=== PATIENT | male | born 1980 | race Caucasian/White ===

== ENCOUNTER 2017-08-05 09:36 | Emergency (ER) | payer OTHER, MEDICAID ==
[2017-08-05 09:49] VITALS: BP 130/84
[2017-08-05] MEDS ORDERED: IBUPROFEN 800 MG TABLET PO STA (10:44)
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
[2017-08-05] MEDS ORDERED: IBUPROFEN 800 MG TABLET PO ONE (10:55)
== END 2017-08-05 10:56 | disposition home or self-care (01) ==
LOC: ED 09:36
DX: M79.1 Myalgia (principal); S16.1XXA Strain of muscle, fascia and tendon at neck level, initial encounter; V46.5XXA Car driver injured in collision with other nonmotor vehicle in traffic accident, initial encounter; Y92.411 Interstate highway as the place of occurrence of the external cause
CPT/HCPCS: 99282; 99283; A9270

== ENCOUNTER 2017-08-15 16:49 | Outpatient (CLI) | payer OTHER, MEDICAID ==
--- NOTE | 2017-08-16 11:05 | XRAY Report ---
THREE-VIEW LUMBAR SPINE: 08/15/2017 HISTORY: Back pain. COMPARISON: Reformatted images from the CT scan 06/12/2015. FINDINGS: Minimal retrolisthesis L2 with respect to L3, L3 with respect to L4, and L4 with respect to L5. Minimal lumbar levoscoliosis. Vertebral bodies normal in height without fracture or destruction. There is degenerative disk space narrowing L4-5 and L3-4. Remaining disk spaces grossly well-maintained. Mild degenerative facet joint arthropathy most marked L4-5 and L5-S1. IMPRESSION: DEGENERATIVE CHANGE LUMBAR SPINE ABOVE. LUMBAR SPINAL STENOSIS MAY BE PRESENT BUT COULD BE BEST ASSESSED BY MRI. JOB #: [id number] EXT JOB #: [id number] KARTHIK
--- NOTE | 2017-08-16 11:10 | XRAY Report ---
THORACIC SPINE, THREE VIEWS: 08/15/2017 HISTORY: Back pain. COMPARISON: CXR 12/30/15 FINDINGS: Very slight upper thoracic dextroscoliosis. Vertebral bodies otherwise unremarkable in height and alignment. Mild scattered degenerative disk space narrowing. No bone destruction or fracture. Multiple surgical clips in the neck. IMPRESSION: MINOR DEGENERATIVE CHANGE THORACIC SPINE SIMILAR TO THE CHEST X- RAY OF 01/19/2016. NO SUPERIMPOSED ACUTE FINDINGS. JOB #: [id number] EXT JOB #: [id number] [facility]
--- NOTE | 2017-08-16 11:11 | XRAY Report ---
CERVICAL SPINE: 08/15/2017 HISTORY: Neck pain. COMPARISON: None. FINDINGS: The cervical vertebral bodies are normal in height and alignment. The disk spaces are wel l-maintained. The C1-2 articulation is anatomically aligned. No prevertebral soft tissue swelling. Multiple surgical clips in the neck. IMPRESSION: NEGATIVE THREE-VIEW CERVICAL SPINE. JOB #: [id number] EXT JOB #:[id number]
== END 2017-08-15 16:50 | disposition home or self-care (01) ==
LOC: DI 16:49
PROVIDERS: ATTEND Family Medicine
DX: S29.012A Strain of muscle and tendon of back wall of thorax, initial encounter (principal); S39.012A Strain of muscle, fascia and tendon of lower back, initial encounter; S16.1XXA Strain of muscle, fascia and tendon at neck level, initial encounter
CPT/HCPCS: 72040; 72070; 72100

== ENCOUNTER 2017-12-02 11:10 | Outpatient (CLI) | payer BC, MEDICAID, OTHER ==
[2017-12-02 20:05] LABS: BASOPHILS % (AUTO) 0.3 %; EOSINOPHILS # (AUTO) 0.1 10^3/uL (0.0-0.7); EOSINOPHILS % (AUTO) 1.3 %; LYMPHOCYTES # (AUTO) 1.2 10^3/uL (1.5-3.5); LYMPHOCYTES % (AUTO) 20.9 %; MEAN CORPUSCULAR HEMOGLOBIN 24.9 pg (27.0-31.0); MEAN CORPUSCULAR HGB CONC 30.7 g/dL (32.0-36.0); MEAN CORPUSCULAR VOLUME 81.1 fL (80.0-94.0); MEAN PLATELET VOLUME 10.3 fL (7.4-11.4); MONOCYTES # (AUTO) 0.4 10^3/uL (0.0-1.0); MONOCYTES % (AUTO) 6.5 %; NEUTROPHILS # (AUTO) 4.1 10^3/uL (1.5-6.6); PLT - PLATELET COUNT 234 10^3/uL (130-450); RED BLOOD COUNT 4.82 10^6/uL (4.70-6.10); RED CELL DISTRIBUTION WIDTH 16.5 % (12.0-15.0); WHITE BLOOD COUNT 5.8 x10^3/uL (4.8-10.8)
[2017-12-02 20:19] LABS: BUN - BLOOD UREA NITROGEN 17 mg/dL (6-20); CALCIUM 9.4 mg/dL (8.5-10.3); CARBON DIOXIDE - CO2 28 mmol/L (21-32); CHLORIDE 103 mmol/L (101-111); CREATININE 1.2 mg/dL (0.6-1.2); GFR - MDRD 68 (>89); GLUCOSE 99 mg/dL (70-100); SODIUM 139 mmol/L (135-145)
[2017-12-02 20:38] LABS: THYROID STIMULATING HORMONE 45.87 uIU/mL (0.34-5.60)
[2017-12-02 22:19] LABS: FREE T4 (FREE THYROXINE) 0.63 ng/dL (0.58-1.64)
== END 2017-12-02 11:11 | disposition home or self-care (01) ==
LOC: LAB.N 11:10
PROVIDERS: ATTEND Physician Assistant Medical
DX: F41.8 Other specified anxiety disorders (principal); G44.329 Chronic post-traumatic headache, not intractable; E03.9 Hypothyroidism, unspecified; G63 Polyneuropathy in diseases classified elsewhere
CPT/HCPCS: 36415; 80048; 84439; 84443; 85025

== ENCOUNTER 2018-02-01 20:13 | Outpatient (CLI) | payer MEDICAID | END 2018-02-01 20:14 | disposition home or self-care (01) | LOC: LAB.N 20:13 | PROVIDERS: ATTEND Physician Assistant Medical | DX: E03.9 Hypothyroidism, unspecified (principal) | CPT/HCPCS: 36415; 84443 ==

== ENCOUNTER 2018-10-07 10:03 | Emergency (ER) | payer MEDICAID ==
[2018-10-07] MEDS ORDERED: MELOXICAM 7.5 MG TABLET PO STA (12:19)
--- NOTE | 2018-10-07 12:22 | ED Physician Documentation ---
PD HPI BACK PAIN - Stated complaint Stated Complaint: CANT SLEEP/BILAT LEG NUMBNESS - Chief complaint Chief Complaint: Back Pain - History obtained from History obtained from: Patient - History of Present Illness Timing - onset: Chronic Pain level max: 5 Pain level now: 5 Location: Lower, Right, Left Quality: Pain, Similar to prior episodes Associated symptoms: Numbness (Bilateral legs, outer aspects.). No: Fever, Weakness, Incontinent of urine, Unable to urinate, Hematuria, Incontinent of stool Improves with: Rest Worsened by: Movement - Additional information Additional information: Patient is a 38-year-old male with chronic low back pain who received steroid injections 2 days ago at [facility]. States that he has had trouble sleeping since that time and is more uncomfortable since receiving the injections. Has not taken anything for pain. Is not having any fevers. No loss of bowel or bladder control. Does not use IV drugs. Review of Systems Constitutional: denies: Fever, Chills Respiratory: denies: Cough GI: denies: Abdominal Pain, Vomiting, Diarrhea Skin: denies: Rash Musculoskeletal: denies: Neck pain Neurologic: denies: Headache PD PAST MEDICAL HISTORY - Past Medical History Cardiovascular: None Respiratory: None Endocrine/Autoimmune: HyPERthyroidism, Other GI: None : None HEENT: None Musculoskeletal: Chronic back pain - Past Surgical History Past Surgical History: Yes Ortho: Other HEENT: Tonsil/Adenoidectomy - Present Medications Home Medications: Ambulatory Orders Medication Instructions Recorded Confirmed Calcium Carbonate [Calcium] 1,000 mg PO DAILY 02/16/14 10/09/16 Levothyroxine [Synthroid] 150 mcg PO QDAC 02/16/14 10/09/16 Magnesium 30 mg PO DAILY 02/16/14 10/09/16 Cyanocobalamin (Vitamin B-12) 1,000 mg PO DAILY 10/09/16 10/09/16 [B-12] Erythromycin Base [Erythromycin 1 gm LEFTEYE BID #1 oint...g. 10/09/16 Ophthalmic Ointment] Potassium Citrate [Urocit-K] 5 meq PO DAILY 10/09/16 10/09/16 Verapamil [Calan] 40 mg PO TID 10/09/16 10/09/16 oxyCODONE/ACET 5/325 [Percocet 5 1 - 2 each PO Q6H PRN #10 tablet 10/09/16 mg/325 mg] Cyclobenzaprine [Flexeril] 10 mg PO TID PRN #20 tablet 08/05/17 HYDROcod/ACETAM 5/325 [[place] 5/325] 1 - 2 ea PO Q6H PRN #20 tablet 08/05/17 Diclofenac Epolamine [Flector] 1 each TD Q12H PRN #10 adh..patch 10/07/18 Hydrocodone/Acetaminophen 1 - 2 each PO Q6H PRN #10 tablet 10/07/18 [Hydrocodon-Acetaminophen 5-325] Meloxicam [Mobic] 15 mg PO DAILY PRN #20 tablet 10/07/18 - Allergies Allergies/Adverse Reactions: Allergies Allergy/AdvReac Type Severity Reaction Status Date / Time No Known Drug Allergies Allergy Verified 10/07/18 10:15 - Social History Does the pt smoke?: No Smoking Status: Never smoker Does the pt drink ETOH?: Yes Does the pt have substance abuse?: No - Immunizations Immunizations are current?: Yes - POLST Patient has POLST: No PD ED PE NORMAL - Vitals Vital signs reviewed: Yes - General General: Alert and oriented X 3, No acute distress - HEENT HEENT: Moist mucous membranes - Neck Neck: Supple, no meningeal sign, No bony TTP - Cardiac Cardiac: RRR, Strong equal pulses - Respiratory Respiratory: No respiratory distress, Clear bilaterally - Abdomen Abdomen: Soft, Non tender, Non distended - Back Back: No spinal TTP (Injection site is without signs of infection. No swelling. No midline tenderness to palpation or percussion) - Derm Derm: Warm and dry - Extremities Extremities: Other (Normal bilateral lower extremity patellar and ankle jerk reflexes. Normal great toe extension bilaterally. no saddle anesthesia) - Neuro Neuro: Alert and oriented X 3 - Psych Psych: Normal mood, Normal affect Results - Vitals Vitals: Vital Signs - 24 hr 10/07/18 10:11 Temperature 36.0 C L Heart Rate 106 H Respiratory 16 Rate Blood Pressure 121/70 O2 Saturation 98 Oxygen O2 Source Room air PD MEDICAL DECISION MAKING - ED course Complexity details: considered differential (No cauda equina, no spinal epidural abscess, no fracture, no aortic dissection or evidence of aneursym rupture), d/w patient ED course: 38-year-old male with chronic low back pain, states worsening after receiving an steroid injection 2 days ago. No evidence of cauda equina, epidural abscess. No fevers. He has not taken anything for pain, will trial him on meloxicam and Flector patches. Will prescribe a small amount of Vicodin for breakthrough. Patient counseled regarding signs and symptoms for which I believe and urgent re-evaluation would be necessary. Patient with good understanding of and agreement to plan and is comfortable going home at this time This document was made in part using voice recognition software. While efforts are made to proofread this document, sound alike and grammatical errors may occur. Departure - Departure Disposition: Home, Self Care Clinical Impression: Sciatica Qualifiers: Laterality: bilateral Qualified Code(s): M54.31 - Sciatica, right side Condition: Good Instructions: ED Sciatica Follow-Up: Flako Lane PA-C [Primary Care Provider] - Prescriptions: Diclofenac Epolamine [Flector] 1 each TD Q12H PRN #10 adh..patch PRN Reason: back pain Hydrocodone/Acetaminophen [Hydrocodon-Acetaminophen 5-325] 1 - 2 each PO Q6H PRN #10 tablet PRN Reason: pain Meloxicam [Mobic] 15 mg PO DAILY PRN #20 tablet PRN Reason: pain Comments: Return if you worsen. You can try the Flector patches as needed for pain. You could also try meloxicam. Do not use the 2 together. Return especially for loss of bowel or bladder control, increasing numbness or fevers. Do not drink alcohol or drive while on narcotic pain medicine. Note that many narcotic pain relievers also contain tylenol/acetaminophen. Please ensure that your total dose of acetaminophen from all sources does not exceed 3 grams (3000mg) per day. You may constipated on this medication, take a stool softener such as "Colace" twice a day while you are on it. Also recommend a guvz-bqv-yhfyins laxative such as senna or MiraLAX any day that you do not have a bowel movement. If you received narcotic pain medication in the emergency department, do not drive or operate machinery for the next 24 hours.
[2018-10-07 12:46] VITALS: BP 128/101
== END 2018-10-07 12:46 | disposition home or self-care (01) ==
LOC: ED 10:03
DX: M54.31 Sciatica, right side (principal); G89.29 Other chronic pain; E05.90 Thyrotoxicosis, unspecified without thyrotoxic crisis or storm
CPT/HCPCS: 99283; A9270

== ENCOUNTER 2018-12-21 12:54 | Emergency (ER) | payer MEDICAID ==
[2018-12-21] MEDS ORDERED: oxyCODONE 5 MG TABLET PO STA (15:15)
--- NOTE | 2018-12-21 15:18 | ED Physician Documentation ---
PD HPI UPPER EXT INJURY - Stated complaint Stated Complaint: UPPER LEFT SIDE PX - Chief complaint Chief Complaint: Ext Problem - History obtained from History obtained from: Patient - History of Present Illness Location: Left, Shoulder Type of injury: Other (He was putting on a hooded sweatshirt today and felt a pop in the Left shoulder and now has difficulty with range of motion and pain. No history of problems in the shoulder.) Review of Systems Constitutional: reports: Reviewed and negative Cardiac: reports: Reviewed and negative Respiratory: reports: Reviewed and negative PD PAST MEDICAL HISTORY - Past Medical History Cardiovascular: None Respiratory: None Endocrine/Autoimmune: HyPERthyroidism, Other GI: None : None HEENT: None Musculoskeletal: Chronic back pain Other Past Medical History: history of back injury - Past Surgical History Past Surgical History: Yes Ortho: Other HEENT: Tonsil/Adenoidectomy - Present Medications Home Medications: Ambulatory Orders Medication Instructions Recorded Confirmed Calcium Carbonate [Calcium] 1,000 mg PO DAILY 02/16/14 12/21/18 Levothyroxine [Synthroid] 150 mcg PO QDAC 02/16/14 12/21/18 Magnesium 30 mg PO DAILY 02/16/14 12/21/18 Cyanocobalamin (Vitamin B-12) 1,000 mg PO DAILY 10/09/16 12/21/18 [B-12] Potassium Citrate [Urocit-K] 5 meq PO DAILY 10/09/16 12/21/18 Diclofenac Epolamine [Flector] 1 each TD Q12H PRN #10 adh..patch 10/07/18 12/21/18 Meloxicam [Mobic] 15 mg PO DAILY PRN #20 tablet 10/07/18 12/21/18 Oxycodone HCl/Acetaminophen 1 - 2 each PO Q6H PRN #14 tablet 12/21/18 [Percocet 5-325 mg Tablet] - Allergies Allergies/Adverse Reactions: Allergies Allergy/AdvReac Type Severity Reaction Status Date / Time No Known Drug Allergies Allergy Verified 12/21/18 13:03 - Social History Does the pt smoke?: No Smoking Status: Never smoker Does the pt drink ETOH?: Yes Does the pt have substance abuse?: No - Immunizations Immunizations are current?: Yes - POLST Patient has POLST: No PD ED PE NORMAL - Vitals Vital signs reviewed: Yes - General General: Alert and oriented X 3, No acute distress - Extremities Extremities: Other (Left shoulder joint is nontender and without deformity. He can abduct to about 90 degrees and then has pain. Positive supraspinatus testing. Relatively painless internal and external rotation.) - Neuro Neuro: Alert and oriented X 3, Normal speech Results - Vitals Vitals: Vital Signs - 24 hr 12/21/18 13:00 Temperature 36.8 C Heart Rate 96 Respiratory 20 Rate Blood Pressure 149/82 H O2 Saturation 98 Oxygen O2 Source Room air Departure - Departure Disposition: Home, Self Care Clinical Impression: Rotator cuff sprain Condition: Good Record reviewed to determine appropriate education?: Yes Instructions: ED Tendinitis Rotator Cuff Prescriptions: Oxycodone HCl/Acetaminophen [Percocet 5-325 mg Tablet] 1 - 2 each PO Q6H PRN #14 tablet PRN Reason: pain Comments: Follow-up with your orthopedic surgeon for further evaluation and treatment in 1 week if not better. Return if worse. Do the exercises to maintain range of motion in the shoulder joint as shown. Your blood pressure was elevated today on check into the emergency department. This does not mean that you have hypertension, it is a common phenomenon to come to the emergency department and have elevated blood pressure. I recommend that you see your primary care physician within the week to have it rechecked when you are feeling better. Do not drink or drive while taking narcotic pain medication. Note that many narcotic pain relievers also contain Tylenol/acetaminophen. Please ensure that your total dose of acetaminophen from all sources does not exceed 3 g (3000 mg) per day. You may get constipated while on this medication. Take a stool softener such as Colace twice a day while you are on it. Also add an [id number]-bkb-[id number] laxative such as senna or MiraLAX on any day that you do not have a bowel movement. If you received a narcotic pain medication or sedative while in the emergency department, do not drive for the next 24 hours.
[2018-12-21 15:28] VITALS: BP 128/77
== END 2018-12-21 15:34 | disposition home or self-care (01) ==
LOC: ED 12:54
DX: S43.422A Sprain of left rotator cuff capsule, initial encounter (principal); X50.1XXA Overexertion from prolonged static or awkward postures, initial encounter; R03.0 Elevated blood-pressure reading, without diagnosis of hypertension
CPT/HCPCS: 99283; A9270

== ENCOUNTER 2019-01-30 04:38 | Emergency (ER) | payer MEDICAID ==
--- NOTE | 2019-01-30 05:09 | ED Physician Documentation ---
PD HPI URI - Stated complaint Stated Complaint: COUGH - Chief complaint Chief Complaint: Heent - History obtained from History obtained from: Patient - History of Present Illness Timing - onset: How many weeks ago (1) Timing details: Gradual onset, Waxing and waning Pain level now: 6 Associated symptoms: Ear pain, Dry cough. No: Fever Recently seen: Clinic - Additional information Additional information: cough x 7-8 days, saw PMD last week and was prescribed erythromycin and steroids; no tests were performed, but he was told his presentation was suspicious for "walking pneumonia" and thus the medications were prescribed. Patient felt improvement with these, although cough has persisted and feels deeper into lungs, down to the bases of the lungs (had felt higher in chest), and cough is moist. He also c/o right ear pain x 1-2 days. Review of Systems Constitutional: denies: Fever Ears: reports: Ear pain Throat: denies: Sore throat Cardiac: reports: Reviewed and negative Respiratory: reports: Cough. denies: Dyspnea, Wheezing GI: denies: Abdominal Pain PD PAST MEDICAL HISTORY - Past Medical History Past Medical History: Yes Cardiovascular: None Respiratory: None Neuro: None Endocrine/Autoimmune: HyPERthyroidism, Other GI: None : None HEENT: None Psych: None Musculoskeletal: Chronic back pain Derm: None - Past Surgical History Past Surgical History: Yes Ortho: Other HEENT: Tonsil/Adenoidectomy - Present Medications Home Medications: Ambulatory Orders Medication Instructions Recorded Confirmed Calcium Carbonate [Calcium] 1,000 mg PO DAILY 02/16/14 12/21/18 Levothyroxine [Synthroid] 150 mcg PO QDAC 02/16/14 12/21/18 Magnesium 30 mg PO DAILY 02/16/14 12/21/18 Cyanocobalamin (Vitamin B-12) 1,000 mg PO DAILY 10/09/16 12/21/18 [B-12] Potassium Citrate [Urocit-K] 5 meq PO DAILY 10/09/16 12/21/18 Diclofenac Epolamine [Flector] 1 each TD Q12H PRN #10 adh..patch 10/07/18 12/21/18 Meloxicam [Mobic] 15 mg PO DAILY PRN #20 tablet 10/07/18 12/21/18 Oxycodone HCl/Acetaminophen 1 - 2 each PO Q6H PRN #14 tablet 12/21/18 [Percocet 5-325 mg Tablet] guaiFENesin/CODEINE [Robitussin AC] 5 - 10 ml PO Q6H PRN #100 udc 01/30/19 - Allergies Allergies/Adverse Reactions: Allergies Allergy/AdvReac Type Severity Reaction Status Date / Time No Known Drug Allergies Allergy Verified 01/30/19 04:50 - Social History Does the pt smoke?: No Smoking Status: Never smoker Does the pt drink ETOH?: Yes Does the pt have substance abuse?: No - Immunizations Immunizations are current?: Yes - POLST Patient has POLST: No PD ED PE NORMAL - Vitals Vital signs reviewed: Yes - General General: Alert and oriented X 3, No acute distress, Well developed/nourished - HEENT HEENT: Ears normal, Pharynx benign - Neck Neck: Supple, no meningeal sign - Cardiac Cardiac: RRR, No murmur - Respiratory Respiratory: No respiratory distress, Other (scattered rhonchi bilaterally which clear with coughing) Results - Vitals Vitals: Oxygen O2 Source Room air - Rads (name of study) chest xray Radiology: Prelim report reviewed, See rad report PD MEDICAL DECISION MAKING - ED course Complexity details: reviewed results, re-evaluated patient, considered differential, d/w patient Departure - Departure Disposition: 01 Home, Self Care Clinical Impression: Bronchitis Otitis media, serous Qualifiers: Chronicity: acute Laterality: right Recurrence: non-recurrent Qualified Code(s): H65.01 - Acute serous otitis media, right ear Condition: Good Instructions: ED Upper Resp Infec No Abx Tx, ED Otitis Media Serous Adult Follow-Up: Flako Lane PA-C [Primary Care Provider] - Within 1 week Prescriptions: guaiFENesin/CODEINE [Robitussin AC] 5 - 10 ml PO Q6H PRN #100 udc PRN Reason: Cough Discharge Date/Time: 01/30/19 06:25
--- NOTE | 2019-01-30 06:02 | XRAY Report ---
Reason: cough, dyspnea Procedure Date: 01/30/2019 Accession Number: [id number] / [id number] Procedure: XR - Chest 2 View X-Ray CPT Code: 80021 FULL RESULT: EXAM: CHEST RADIOGRAPHY EXAM DATE: 01/30/2019 05:43 AM. CLINICAL HISTORY: Cough and dyspnea COMPARISON: THORACIC SPINE 2 VIEW 08/15/2017 5:21 PM CHEST 2 VIEW PA/LAT 01/19/2016 6:35 AM. TECHNIQUE: 2 views. FINDINGS: Lungs/Pleura: Low lung volumes with resultant accentuation of the pulmonary interstitial and vascular markings. No consolidation, effusion, or definite pneumothorax. Mediastinum: Heart and mediastinal contours are unremarkable. Other: Prior thyroidectomy related clips. IMPRESSION: Small lung volumes without acute cardiac pulmonary abnormality. RADIA
[2019-01-30 06:26] VITALS: BP 133/80
== END 2019-01-30 06:25 | disposition home or self-care (01) ==
LOC: ED 04:38
DX: J40 Bronchitis, not specified as acute or chronic (principal); H65.01 Acute serous otitis media, right ear
CPT/HCPCS: 71046; 99283